=== PATIENT | female | born 1985 | race Caucasian/White ===

== ENCOUNTER 2016-11-25 05:15 | Emergency (ER) | payer OTHER ==
[~2016-11-25] VITALS: Ht 154.9 cm; Wt 99.8 kg
[~2016-11-25 05:15] MED LIST: FLEXERIL PO; FLOMAX0.4 MG PO; IBUPROFEN 800800 MG PO; MIRENA1 EACH IY; NORCO 5-325 TA1 EACH PO; ONDANSETRON HCL4 M2 PO; ZOFRAN ODT4 MG PO
[2016-11-25 05:16] VITALS: BP 146/91
[2016-11-25] MEDS ORDERED: LEVOTHYROXIN0.025 MG PO (05:18)
[2016-11-25] MEDS ORDERED: NORCO 5-325 TA1 EACH PO (05:40)
[2016-12-22] MEDS ORDERED: OXYCODONE-ACET1 EACH PO (06:07)
[2017-01-08] MEDS ORDERED: BLISOVI 24 FE1 EACH PO (23:04)
[2017-01-08] MEDS ORDERED: ERYTHROMYCIN E3.5 G1 OPHTHALMIC (23:26)
[2017-01-28] MEDS ORDERED: PHENERGAN 25 MG25 M1 PO (00:08)
[2017-01-28] MEDS ORDERED: ZOFRAN ODT4 MG PO (00:08)
== END 2016-11-25 05:57 | disposition home or self-care (01) ==
LOC: ER 05:15
DX: M54.9 Dorsalgia, unspecified (principal); Z98.890 Other specified postprocedural states; Z88.8 Allergy status to other drugs, medicaments and biological substances

== ENCOUNTER 2016-12-03 06:11 | Emergency (ER) | payer OTHER ==
[~2016-12-03] VITALS: Ht 162.6 cm; Wt 99.8 kg
[2016-12-03 06:11] VITALS: BP 117/56
[~2016-12-03 06:11] MED LIST changes: +LEVOTHYROXIN0.025 MG PO
[2016-12-03] MEDS ORDERED: BLISOVI 24 FE1 EACH PO (06:16)
[2016-12-03] MEDS ORDERED: NAPROSYN500 MG PO (07:04)
[2016-12-03] MEDS ORDERED: PERCOCET 5-3251 EACH PO (07:04)
[2016-12-22] MEDS ORDERED: OXYCODONE-ACET1 EACH PO (06:07)
[2017-01-08] MEDS ORDERED: BLISOVI 24 FE1 EACH PO (23:04)
[2017-01-08] MEDS ORDERED: ERYTHROMYCIN E3.5 G1 OPHTHALMIC (23:26)
[2017-01-28] MEDS ORDERED: PHENERGAN 25 MG25 M1 PO (00:08)
[2017-01-28] MEDS ORDERED: ZOFRAN ODT4 MG PO (00:08)
== END 2016-12-03 07:24 | disposition home or self-care (01) ==
LOC: ER 06:11
DX: M54.5 Low back pain (principal); Z88.8 Allergy status to other drugs, medicaments and biological substances; Z98.890 Other specified postprocedural states

== ENCOUNTER 2016-12-08 06:04 | Emergency (ER) | payer OTHER ==
[~2016-12-08] VITALS: Ht 162.6 cm; Wt 99.8 kg
[~2016-12-08 06:04] MED LIST changes: +BLISOVI 24 FE1 EACH PO; +NAPROSYN500 MG PO; +PERCOCET 5-3251 EACH PO
[2016-12-08 07:02] VITALS: BP 123/84
[2016-12-22] MEDS ORDERED: OXYCODONE-ACET1 EACH PO (06:07)
[2017-01-08] MEDS ORDERED: BLISOVI 24 FE1 EACH PO (23:04)
[2017-01-08] MEDS ORDERED: ERYTHROMYCIN E3.5 G1 OPHTHALMIC (23:26)
[2017-01-28] MEDS ORDERED: PHENERGAN 25 MG25 M1 PO (00:08)
[2017-01-28] MEDS ORDERED: ZOFRAN ODT4 MG PO (00:08)
== END 2016-12-08 07:03 | disposition home or self-care (01) ==
LOC: ER 06:04
DX: M54.9 Dorsalgia, unspecified (principal); R11.10 Vomiting, unspecified; Z98.890 Other specified postprocedural states; Z88.8 Allergy status to other drugs, medicaments and biological substances

== ENCOUNTER 2016-12-14 23:43 | Emergency (ER) | payer OTHER ==
[~2016-12-14] VITALS: Ht 162.6 cm; Wt 99.8 kg
[2016-12-14 23:49] VITALS: BP 113/79
[2016-12-15] MEDS ORDERED: MOBIC15 MG PO (00:27)
[2016-12-15] MEDS ORDERED: PREDNISONE 20 M20 MG PO (00:27)
[2016-12-15] MEDS ORDERED: FLEXERIL PO (00:27)
[2016-12-22] MEDS ORDERED: OXYCODONE-ACET1 EACH PO (06:07)
[2017-01-08] MEDS ORDERED: BLISOVI 24 FE1 EACH PO (23:04)
[2017-01-08] MEDS ORDERED: ERYTHROMYCIN E3.5 G1 OPHTHALMIC (23:26)
[2017-01-28] MEDS ORDERED: PHENERGAN 25 MG25 M1 PO (00:08)
[2017-01-28] MEDS ORDERED: ZOFRAN ODT4 MG PO (00:08)
== END 2016-12-15 00:40 | disposition home or self-care (01) ==
LOC: ER 23:43
DX: M51.26 Other intervertebral disc displacement, lumbar region (principal); Z90.89 Acquired absence of other organs; Z88.8 Allergy status to other drugs, medicaments and biological substances

== ENCOUNTER 2019-05-01 21:30 | Emergency (ER) | payer BC, OTHER ==
[~2019-05-01] VITALS: Ht 162.6 cm; Wt 131.5 kg
[~2019-05-01 21:30] MED LIST changes: +ERYTHROMYCIN E3.5 G1 OPHTHALMIC; +HYDROXYZINE HCL25 M1 PO; +KEFLEX500 MG PO; +MEDROLDOSEPACK PO; +MOBIC15 MG PO; +OXYCODONE-ACET1 EACH PO; +PHENERGAN 25 MG25 M1 PO; +PREDNISONE 20 M20 MG PO
[2019-05-01] MEDS ORDERED: CELEXA20 MG PO (23:42)
[2019-05-02 00:41] LABS: URINE BILIRUBIN NEGATIVE (Negative); URINE BLOOD NEGATIVE (Negative); URINE CLARITY CLEAR; URINE COLOR YELLOW; URINE GLUCOSE-RANDOM* NEGATIVE (Negative); URINE KETONES NEGATIVE (Negative); URINE LEUKOCYTES-REFLEX NEGATIVE (Negative); URINE NITRITE-REFLEX NEGATIVE (Negative); URINE PROTEIN (DIPSTICK) NEGATIVE (Negative); URINE SPECIFIC GRAVITY >= 1.030 (1.005-1.035); URINE UROBILINOGEN 0.2 E.U./dl (0.2-1.0)
[2019-05-02] MEDS ORDERED: NORCO 5-325 TA1 EAC1 PO (02:10)
[2019-05-02] MEDS ORDERED: MOBIC15 MG PO (02:10)
[2019-05-02 02:32] VITALS: BP 117/68
== END 2019-05-02 02:33 | disposition home or self-care (01) ==
LOC: ER 21:30
PROVIDERS: Emergency Medicine
DX: M54.5 Low back pain (principal); E06.3 Autoimmune thyroiditis; M19.049 Primary osteoarthritis, unspecified hand; Z88.8 Allergy status to other drugs, medicaments and biological substances

== ENCOUNTER 2019-05-10 18:43 | Emergency (ER) | payer BC, OTHER ==
[~2019-05-10] VITALS: Ht 162.6 cm; Wt 131.5 kg
[~2019-05-10 18:43] MED LIST changes: +CELEXA20 MG PO; +NORCO 5-325 TA1 EAC1 PO
[2019-05-10 18:58] LABS: URINE BILIRUBIN NEGATIVE (Negative); URINE BLOOD NEGATIVE (Negative); URINE CLARITY CLEAR; URINE COLOR YELLOW; URINE GLUCOSE-RANDOM* NEGATIVE (Negative); URINE KETONES NEGATIVE (Negative); URINE LEUKOCYTES-REFLEX TRACE (Negative); URINE NITRITE-REFLEX NEGATIVE (Negative); URINE PROTEIN (DIPSTICK) NEGATIVE (Negative); URINE UROBILINOGEN 0.2 E.U./dl (0.2-1.0)
[2019-05-10] MEDS ORDERED: GABAPENTIN 100100 MG PO (20:37)
[2019-05-10 20:47] VITALS: BP 143/83
== END 2019-05-10 20:52 | disposition home or self-care (01) ==
LOC: ER 18:43
PROVIDERS: Emergency Medicine
DX: M54.5 Low back pain (principal); Z88.8 Allergy status to other drugs, medicaments and biological substances; Z90.49 Acquired absence of other specified parts of digestive tract; Z98.890 Other specified postprocedural states; Z87.442 Personal history of urinary calculi

== ENCOUNTER 2019-12-28 23:23 | Emergency (ER) | payer BC, OTHER ==
[~2019-12-28] VITALS: Ht 162.6 cm; Wt 135.6 kg
--- NOTE | ~2019-12-28 | EKG ---
Formerly [facility] [place] [address] ELECTROCARDIOGRAM REPORT Name: KEO EWINGN Room #: REG [facility].#: [id number] Admission: 12/28/19 Attend Phys: Discharge: Date of : 83 Report #: [id number] THIS REPORT FOR: cc: [facility] - Clinic physician unknown [facility] - Clinic physician unknown Graham Stevenson MD ~ THIS REPORT FOR: //name// [facility]ly [facility] ED Test Date: 2019-12-29 Test Time: 01:37:10 Pat Name: KEO EWING Department: Room: Gender: F Talent Coordinator: : 1985 Requested By: Blaine Patino Order Number: [id number] MD: Measurements Intervals [place] Rate: 70 P: 72 SD: 138 QRS: 70 QRSD: 97 T: 27 QT: 423 QTc: 457 Interpretive Statements Sinus rhythm No previous ECG available for comparison [email or web address] By: 6 6 Graham Stevenson MD /EPI
[~2019-12-28 23:23] MED LIST changes: +GABAPENTIN 100100 MG PO
[2019-12-29] MEDS ORDERED: PNV 29-1 TABLE1 EACH PO (00:28)
[2019-12-29] MEDS ORDERED: VITAMIN D3-ALO1 EACH PO (00:30)
[2019-12-29 02:22] LABS: ABSOLUTE NEUTROPHILS 5.6 thou/uL (1.4-8.2); BASOPHILS 0.5 % (0.0-2.0); EOSINOPHILS 4.5 % (0.0-3.0); HEMATOCRIT 44.1 % (37.0-47.0); HEMOGLOBIN 14.4 gm/dL (12.0-15.0); LYMPHOCYTES 28.2 % (24.0-44.0); MCH 29.6 pg (26.0-34.0); MCHC 32.7 g/dL (28.0-37.0); MCV 90.6 fL (80.0-100.0); MONOCYTES 5.6 % (1.0-8.0); PLATELET COUNT 192 thou/uL (150-400); POLYS 61.2 % (36.0-66.0); RBC 4.87 mil/uL (4.20-5.00); RDW 13.8 % (10.5-14.5); WBC 9.2 thou/uL (4.0-11.0)
[2019-12-29 02:25] LABS: ANION GAP 8 mmol/L (7-16); BUN 18 mg/dL (7-18); CALCIUM 8.8 mg/dL (8.5-10.1); CHLORIDE 104 mmol/L (98-107); CO2 28 mmol/L (21-32); CREATININE 0.9 mg/dL (0.6-1.0); GLUCOSE 88 mg/dL (74-106); POTASSIUM 3.7 mmol/L (3.5-5.1); SODIUM 140 mmol/L (136-145)
[2019-12-29 02:33] LABS: TROPONIN-I <0.06 ng/mL (<0.06)
[2019-12-29] MEDS ORDERED: CITALOPRAM HBR40 MG PO (02:36)
[2019-12-29] MEDS ORDERED: LEVOTHYROXINE137 MCG PO (02:36)
[2019-12-29] MEDS ORDERED: TESSALON PERLE100 M1 PO (02:41)
[2019-12-29 02:49] VITALS: BP 147/76
== END 2019-12-29 02:50 | disposition home or self-care (01) ==
LOC: ER 23:23
PROVIDERS: Emergency Medicine
DX: M94.0 Chondrocostal junction syndrome [Tietze] (principal); R05 Cough; Z90.49 Acquired absence of other specified parts of digestive tract; Z87.442 Personal history of urinary calculi; Z88.8 Allergy status to other drugs, medicaments and biological substances

== ENCOUNTER 2020-06-30 11:14 | Emergency (ER) | payer BC ==
[~2020-06-30] VITALS: Ht 165.1 cm; Wt 138.3 kg
[~2020-06-30 11:14] MED LIST changes: +CITALOPRAM HBR40 MG PO; +LEVOTHYROXINE137 MCG PO; +PNV 29-1 TABLE1 EACH PO; +TESSALON PERLE100 M1 PO; +VITAMIN D3-ALO1 EACH PO
[2020-06-30] MEDS ORDERED: SOMA350 MG PO (11:28)
[2020-06-30] MEDS ORDERED: BAYER BACK & B1 EACH PO (11:29)
[2020-06-30] MEDS ORDERED: SYNTHROID150 MCG PO (11:29)
[2020-06-30] MEDS ORDERED: MOBIC15 MG PO (12:54)
[2020-06-30] MEDS ORDERED: NORCO 5-325 TA1 EAC2 PO (12:54)
[2020-06-30 13:05] VITALS: BP 101/68
== END 2020-06-30 13:06 | disposition home or self-care (01) ==
LOC: ER 11:14
DX: S39.012A Strain of muscle, fascia and tendon of lower back, initial encounter (principal); N81.89 Other female genital prolapse; Z90.89 Acquired absence of other organs; Z79.899 Other long term (current) drug therapy; Z88.8 Allergy status to other drugs, medicaments and biological substances; X58.XXXA Exposure to other specified factors, initial encounter; Y93.89 Activity, other specified; Y92.89 Other specified places as the place of occurrence of the external cause; Y99.8 Other external cause status